=== PATIENT | male | born 1975 | race Caucasian/White ===

== ENCOUNTER 2017-01-21 13:30 | Emergency (ER) | payer BC ==
[~2017-01-21 13:30] MED LIST: EFFEXOR XR150 MG PO; EXFORGE1 TAB PO; LOP100 PO; VITAMIN B-121000 MC1 SL
[2017-06-10] MEDS ORDERED: NORCO1 TAB PO (10:05)
== END 2017-01-21 16:13 | disposition home or self-care (01) ==
LOC: ER 13:30
DX: M54.5 Low back pain (principal); I10 Essential (primary) hypertension; F17.200 Nicotine dependence, unspecified, uncomplicated; Z79.899 Other long term (current) drug therapy
CPT/HCPCS: 96372; 99283; J1170; J2405

== ENCOUNTER 2017-01-25 19:07 | Emergency (ER) | payer BC ==
[2017-06-10] MEDS ORDERED: NORCO1 TAB PO (10:05)
== END 2017-01-25 23:23 | disposition left against medical advice (07) ==
LOC: ER 19:07
DX: M54.5 Low back pain (principal); I10 Essential (primary) hypertension; F17.200 Nicotine dependence, unspecified, uncomplicated; Z79.899 Other long term (current) drug therapy
CPT/HCPCS: 72148; 96374; 96375; 99284; J1170; J2405